=== PATIENT | female | born 1990 | race Caucasian/White ===

== ENCOUNTER 2019-07-25 08:41 | Inpatient (IN) ==
[2019-07-25] MEDS ORDERED: OXYTOCIN/DEXTROSE 5%-WATER 30 UNITS/500 ML BAG IV ONE ×2 (09:10→20:04)
[2019-07-25] MEDS ORDERED: RINGER'S SOLUTION,LACTATED 1,000 ML IV ONE (09:10)
[2019-07-25] MEDS ORDERED: DEXTROSE 5%-LACTATED RINGERS 1,000 ML IV PRN (09:10)
--- NOTE | 2019-07-25 14:02 | PN ---
Progess Note - Interim Date: 07/25/19 Time: 14:00 Narrative: 07/25/19 14:00 Patient becoming more uncomfortable with contractions Vital signs stable. FHT: 120 baseline, reassuring contractions q 4-5 min Cervix: 5/90/0, AROM-clear at 1255 Impression: Intrauterine at 40 1/7 weeks in labor Plan: Continue present plan
[2019-07-25] MEDS ORDERED: LIDOCAINE HCL 50 ML VIAL ONE (18:18)
[2019-07-25] MEDS ORDERED: HYDROCORTISONE 30 APPL TUBE TP PRN (20:04)
[2019-07-25] MEDS ORDERED: BISACODYL 10 MG SUPP.RECT RC PRN (20:04)
[2019-07-25] MEDS ORDERED: GLYCERIN/WITCH HAZEL LEAF 40 APPL BOX TP PRN (20:04)
[2019-07-25] MEDS ORDERED: SENNOSIDES 8.6 MG TABLET PO PRN (20:04)
[2019-07-25] MEDS ORDERED: oxyCODONE HCL/ACETAMINOPHEN 1 TAB TABLET PO PRN (20:04)
[2019-07-25] MEDS ORDERED: BENZOCAINE/MENTHOL 81 SPRAY CAN TP PRN (20:04)
[2019-07-25] MEDS ORDERED: IBUPROFEN 800 MG TABLET PO PRN ×2 (20:04)
--- NOTE | 2019-07-25 20:06 | HP ---
Chief Complaint - Chief Complaint Date of Service: 07/25/19 Time of Service: 08:50 Chief Complaint: contractions History of Present Illness: 29 yo at 40 1/7 weeks presents to L&D complaining of contractions of increasing frequency and intensity since around 0600 this am. 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 Rh positive Rubella immune GBS negative Medical History (Last Reviewed 07/25/19 @ 20:12 by Suleiman Chamorro DO) Body piercing Onset Date: Unknown Vitiligo Onset Date: Unknown Mononucleosis Onset Date: Unknown Surgical History: Surgical History (Last Reviewed 07/25/19 @ 20:12 by Suleiman Chamorro DO) [place] teeth extracted Onset Date: ~2002 Family History: Family History (Last Reviewed 07/25/19 @ 20:12 by Suleiman Chamorro DO) Mother Alive and well Father Hypertension Grandmother Diabetes Grandfather Parkinson's disease Grandfather Myocardial infarction Grandmother Hypertension Acute leukemia Aunt Diabetes Uncle Myocardial infarction, Onset Age: 50 Uncle Myocardial infarction Brother Autism Social History: (Last Reviewed 07/25/19 @ 20:12 by Suleiman Chamroro DO) Social History: adopted: No mcc: No Marital status: household members: spouse number of children: 0 current occupational status: employed 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 current occupational exposures/hazards: No Highest education level completed: Bachelor's degree Sexually Active: Yes Service: No Tobacco: Smoking Status: Never smoker Alcohol: alcohol intake: never Substance Use: substance use type: does not use Dietary Habits: caffeine: Yes caffeine comment: Rare caffeine use Exercise: frequency: 1-2 times per week [place]/Restoration: agree to transfusion: Yes Review Of Systems (GEN) - Review of Systems Generalized/Overall Review: Present: No Symptoms Reported EENTM: Present: No Symptoms Reported Respiratory: Present: No Symptoms Reported Cardiac: Present: No Symptoms Reported Abdominal: Present: Abdominal Pain - contractions Genitourinary: Present: No Symptoms Reported Musculoskeletal: Present: No Symptoms Reported Neurological: Present: No Symptoms Reported Skin: Present: No Symptoms Reported Endocrine: Present: No Symptoms Reported Allergies/Adverse Reactions: Allergies Allergy/AdvReac Type Severity Reaction Status Date / Time amoxicillin Allergy Unknown RASH Verified 11/22/19 09:03 Home Medications: HOME MEDICATIONS activated charcoal 200 mg capsule 200 mg PO PC cap 12/10/18 [Last Taken 07/24/19] ascorbic acid (vitamin C) 500 mg/5 mL oral syrup 250 mg PO DAILY 12/10/18 [Last Taken Unknown] cholecalciferol (vitamin D3) 2,000 unit/drop oral drops 4,000 unit PO DAILY 12/10/18 [Last Taken Unknown] multivitamin 2 cap PO DAILY cap 12/10/18 [Last Taken Unknown] Lactobacillus-Bifidobacterium 30 billion cell capsule,delayed release 3 cap PO DAILY cap 01/28/19 [Last Taken Unknown] magnesium citrate 100 mg tablet 200 mg PO DAILY tab 01/28/19 [Last Taken Unknown] Exam - Exam Constitutional: Present: Alert, Oriented x3, Cooperative, Mild distress ENT Exam: Present: hearing grossly normal Breasts: Present: Exam deferred Respiratory: Present: lungs clear, no respiratory distress Cardiovascular/Chest: Present: regular rate, rhythm, no edema Abdomen: Present: soft, nontender, no rebound tenderness, other - gravid /Rectal: Present: Other - cervix - 5-6/80/0 Extremity: Present: no pedal edema, no calf tenderness Skin Exam: Present: normal color, warm/dry, no cyanosis Lymphatic: Present: no adenopathy Neurologic: Present: alert, normal mood/affect, oriented x 3, dizzy/light- headedness Appearance: Present: appropriate appearance, appropriate insight Eye contact: Present: cooperative, good eye contact Thoughts: Present: normal thought pattern, normal mood /affect Assessment/Plan - Assessment/Plan (1) Labor established Assessment: Admit for routine management of labor. Problem: Acute
--- NOTE | 2019-07-25 20:08 | OR ---
Operative Report - Dictated Report Narrative: Spontaneous vaginal delivery of vigorously crying male at 1859 on 07/25/2019 with Apgars 10 and 10, weighing 3473 g and MARTIN position with loose nuchal cord x1 and right hand at face presentation. Cord clamping delayed approximately 1 minute Placenta delivered complete, intact, with three vessel cord Estimated blood loss: 100 mL Anesthesia: Local Lacerations: 2 first-degree vaginal lacerations repaired with 3-0 Vicryl Rapide. Right labial laceration repaired with 4-0 Vicryl Rapide. History for MU History for Definition: * The number of deliveries resulting in a live the patient experienced prior to current hospitalization * The previous delivery of live twins or any live multiple gestation is considered one live event. *If primagravida or nulliparous is documented select zero for the number of previous live births. Live Events: Live Events: 0
[2019-07-25] MEDS: DOCUSATE SODIUM 100 MG CAPSULE PO SCH (23:58)
--- NOTE | 2019-07-26 07:44 | PN ---
Subjective - Date and Time Seen Date: 07/26/19 Time: 07:44 Objective - Vitals Vitals: Last Vital Signs Temp 37.1 C 07/26/19 00:35 Pulse 94 07/26/19 00:35 Resp 18 07/26/19 00:35 BP 105/58 07/26/19 00:35 Pulse Ox 97 07/26/19 00:35 Patient denies complaints. Breast-feeding well. Lochia wnl abdomen - soft, nontender Uterus -firm, at umbilicus - 1 no calf tenderness Impression: day #1 - s/p spontaneous vaginal delivery. Plan: Continue routine care Assessment/Plan - Problems/Diagnosis (1) Labor established Problem: Acute
[2019-07-26] MEDS: ACTIVATED CHARCOAL 200 MG PO SCH ×3 (08:46→21:05)
[2019-07-26] MEDS: DOCUSATE SODIUM 100 MG CAPSULE PO SCH ×2 (08:47→21:04)
[2019-07-26] MEDS ORDERED: [UNRECOGNIZED DRUG - REMARK] PO SCH (09:00)
[2019-07-26] MEDS ORDERED: ASCORBIC ACID 250 MG PO SCH (09:00)
[2019-07-26] MEDS ORDERED: CHOLECALCIFEROL 4000 UNIT PO SCH (09:00)
[2019-07-26] MEDS ORDERED: MAGNESIUM CITRATE 200 MG PO SCH (09:00)
[2019-07-27 07:28] VITALS: BP 100/57
--- NOTE | 2019-07-27 08:58 | PN ---
Subjective - Date and Time Seen Date: 07/27/19 Time: 08:57 Objective - Vitals Vitals: Last Vital Signs Temp 37.0 C 07/27/19 07:24 Pulse 69 07/27/19 07:24 Resp 18 07/27/19 07:24 BP 100/57 07/27/19 07:24 Pulse Ox 98 07/27/19 07:24 Patient denies complaints. Breast-feeding well. Lochia wnl abdomen - soft, nontender Uterus -firm, at umbilicus - 2 no calf tenderness Impression: day #2 - s/p spontaneous vaginal delivery. Plan: Routine discharge instructions Assessment/Plan - Problems/Diagnosis (1) Labor established Problem: Acute
[2019-07-27] MEDS: DOCUSATE SODIUM 100 MG CAPSULE PO SCH (09:14)
== END 2019-07-27 12:00 | disposition home or self-care (01) | DRG 806 ==
LOC: OB 08:41
PROVIDERS: ADMIT Obstetrics & Gynecology; ATTEND Obstetrics & Gynecology
CPT/HCPCS: 59025